=== PATIENT | male | born 1995 | race Caucasian/White ===

== ENCOUNTER 2016-07-09 14:46 | Emergency (ER) | payer MEDICAID, OTHER ==
[2016-07-09 14:59] VITALS: BP 144/61; PULSE 63; RESP 18; TEMP 97.7; O2SAT 96
--- NOTE | 2016-07-09 15:30 | EDPHY ---
H & P Smoking Status: Never smoked Time Seen by Provider: 07/09/16 15:06 HPI/ROS: CHIEF COMPLAINT: Dog bite right leg HISTORY OF PRESENT ILLNESS: 20-year-old male presents to the emergency department by private vehicle with dog bite to the right calf. The patient was on campus and was on his skateboard and apparently a dog was on a leash with its paper control clerk lunged across the past and bit him in his right calf. The incident happened just prior to arrival. He believes his tetanus shot is current. He denies any other trauma or injury. He did exchange information with the dog paper control clerk. ROS: Denies numbness or tingling in his toes, retained foreign body. (Maddy Skaggs) Past Medical/Surgical History: Negative (Maddy Skaggs) Social History: [employer] student (Maddy Skaggs) Physical Exam: On examination the patient has a puncture wound to the distal right lower leg both to the medial lateral side. No suturable lesions noted. No evidence of retained foreign body. Full range of motion of the right lower extremity. Normal gait. No active bleeding. No signs of infection. No palpable bony tenderness. (Maddy Skaggs) Constitutional: Initial Vital Signs Temperature (C) 36.5 C 07/09/16 14:56 Heart Rate 63 07/09/16 14:56 Respiratory Rate 18 07/09/16 14:56 Blood Pressure 144/61 H 07/09/16 14:56 O2 Sat (%) 96 07/09/16 14:56 Allergies/Adverse Reactions: amoxicillin Allergy (Verified 01/19/15 19:43) amoxicillin trihydrate [From Augmentin] Allergy (Verified 01/19/15 19:43) potassium clavulanate [From Augmentin] Allergy (Verified 01/19/15 19:43) Home Medications: Medication Instructions Recorded Doxycycline Hyclate [Doxycycline] 100 mg PO BID #10 cap 07/09/16 MDM/Departure - [facility] ED Course/Re-evaluation: Animal Control has already been contacted. The wounds were thoroughly irrigated and dressed. Due to the patient's penicillin allergy we will not use Augmentin. The patient was given oral doxycycline 100 mg twice daily for 5 days. Patient will return if he notices any signs or symptoms of infection. The patient's tetanus shot is current. I doubt this was a rabbit animal as it was domesticated with an ulnar. The paper control clerk stated that the dog was up-to-date on rabies shot. Animal Control has been contacted. (Maddy Skaggs) The patient was evaluated and managed by the physician media center assistant. I have reviewed this chart and I agree with the findings and plan of care as documented , as indicated by my signature. I am the secondary supervising physician. ( Julieta Mayberry) - Depart Disposition: Home, Routine, Self-Care Clinical Impression: Dog bite of right lower leg Condition: Good Instructions: Animal Bite (ED) Additional Instructions: Doxycycline 100mg twice daily for 5 days to prevent infection. Return if you notice any signs of infection such as redness, increased swelling , fever, purulent discharge. Prescriptions: Doxycycline Hyclate [Doxycycline] 100 mg PO BID #10 cap Referrals: NONE *PRIMARY CARE P,. [Primary Care Provider] - As per Instructions
== END 2016-07-09 16:00 | disposition home or self-care (01) ==
DX: S81.851A Open bite, right lower leg, initial encounter (principal); W54.0XXA Bitten by dog, initial encounter; Y93.89 Activity, other specified